=== PATIENT | male | born 1985 | race Caucasian/White ===

== ENCOUNTER 2020-08-10 17:59 | Inpatient (IN) | payer OTHER ==
[~2020-08-10] VITALS: Ht 182.9 cm; Wt 67.6 kg
[2020-08-10 18:34] LABS: Source, Urine Clean Catch
[2020-08-10 18:35] LABS: Appearance, Urine Clear (Clear); Bilirubin, Urine Neg (Neg); Blood, Urine 4+ (Neg); Color, Urine Yellow (P-Yellow); Glucose Qualitative, Urine 4+ (Neg); Ketones, Urine 4+ (Neg); Leukocyte Esterase, Urine Neg (Neg); Nitrite, Urine Neg (Neg); Protein, Urine 3+ (Neg); Specific Gravity, Urine 1.025 (1.003-1.022); Urobilinogen, Urine NORM (Normal)
[2020-08-10 18:35] LABS: BASOPHILS ABSOLUTE AUTO 0.14 K/mm3 (0.00-0.23); BASOPHILS PERCENT AUTO 1 % (0-2); EOSINOPHILS ABSOLUTE AUTO 0.01 K/mm3 (0.00-0.68); EOSINOPHILS PERCENT AUTO 0 % (0-6); Hematocrit 53.2 % (37.0-53.0); IMMATURE GRAN PERCENT AUTO 2 % (0-1); LYMPHOCYTES ABSOLUTE AUTO 0.83 K/mm3 (0.84-5.20); LYMPHOCYTES PERCENT AUTO 3 % (21-46); MONOCYTES ABSOLUTE AUTO 3.42 K/mm3 (0.16-1.47); MONOCYTES PERCENT AUTO 12 % (4-13); Mean Corpuscular HGB 33.1 pg (26.0-34.0); Mean Corpuscular Volume 104 fL (80-100); Mean Platelet Volume 9.8 fL (9.1-12.4); NEUTROPHILS ABSOLUTE AUTO 23.28 K/mm3 (1.96-9.15); NEUTROPHILS PERCENT AUTO 83 % (41-73); Platelet Count 371 K/mm3 (150-400); RDW Coefficient Variation 13.1 % (11.7-14.2); RDW Standard Deviation 50.4 fL (35.1-46.3); Red Blood Cell Count 5.14 M/mm3 (4.30-5.90); White Blood Cell Count 28.18 K/mm3 (4.00-11.30)
[2020-08-10 18:42] LABS: Amorphous Light (0-Heavy); Bacteria Mod /hpf; Mucus Light (0-Heavy); Red Blood Cells, Urine 0-2 /hpf (0-2); Squamous Epithelial Cells Not Seen /hpf (Few)
[2020-08-10 18:43] LABS: pH Blood Venous <6.80 (7.34-7.37)
[2020-08-10 18:44] LABS: Bicarbonate Venous 6.1 mmol/L (24.0-30.0); PCO2 Venous 27.5 mmHg (38-42); PO2 Venous 46.7 mmHg (38-42)
[2020-08-10 18:45] LABS: Base Excess Venous -30.8 mmol/L
[2020-08-10 18:54] LABS: Alanine Aminotransfer (ALT/SGP 25 U/L (12-78); Albumin, Blood 4.4 g/dL (3.4-5.0); Albumin/Globulin Ratio 1.2 (0.8-1.8); Alk Phos 112 U/L (50-136); Anion Gap 30 mmol/L (6-16); Aspartate Aminotrans (AST/SGOT 21 U/L (12-37); Bilirubin, Total 0.6 mg/dL (0.1-1.0); Blood Urea Nitrogen 30 mg/dL (8-24); CO2, Blood 2 mmol/L (21-32); Calcium, Blood 7.8 mg/dL (8.5-10.1); Chloride, Blood 90 mmol/L (98-108); Globulin, Blood 3.8 g/dL (2.2-4.0); Glomerular Filtration Rate >60 (60-); Glucose, Blood 628 mg/dL (70-99); Potassium, Blood 5.2 mmol/L (3.5-5.5); Sodium, Blood 122 mmol/L (136-145); Total Protein, Blood 8.2 g/dL (6.4-8.2)
--- NOTE | 2020-08-10 22:15 | NUR ---
Transfer to ICU at 2041 Pt to ICU 2 accompanied by ED nurse. Able to follow directions, A/O to location, date, and able to self transfer to ICU bed by sliding from ED bed. Pt has insulin GTT at 6 units/hr at time of arrive infusing via right AC IV, see flow sheet. Pt on 2 L via NC upon arrival, oxygen removed and pts SPO2 remained > 95%. Left AC IV infusing 150 meq sodium bicarb in D5 at rate of 150 mls/hr. Pt denies pain and nausea at this time. HR 140-150's upon arrival, Sinus tach, see vital sign flow sheet. BP stable. Call light within reach. Spoke to patients father, Shiv. Pt gave permission to speak to his father. Shiv states, "What is his alcohol level? Check his alcohol level." Shiv states pt has a hx of ETOH abuse. Per pt his last drink was 4 months ago. Shiv states pt has been having N/V for the "past few days" and had an episode of incontinence before father called 911.
[2020-08-10 22:45] LABS: Anion Gap 24 mmol/L (6-16); Blood Urea Nitrogen 27 mg/dL (8-24); Bun/Creatinine Ratio 33.4 (12.0-20.0); CO2, Blood 6 mmol/L (21-32); Calcium, Blood 7.5 mg/dL (8.5-10.1); Chloride, Blood 101 mmol/L (98-108); Creatinine, Blood 0.81 mg/dL (0.60-1.20); Glomerular Filtration Rate >60 (60-); Glucose, Blood 362 mg/dL (70-99); Potassium, Blood 4.6 mmol/L (3.5-5.5); Sodium, Blood 131 mmol/L (136-145)
--- NOTE | 2020-08-10 23:00 | NUR ---
Spoke to Dr. Cano via phone Pt has change in mental status. Pt attempting to get out of bed to get glass of water after being reoriented to not leaving the bed due to wake gait. Unable to state year or location. Slow to response. When asking what year he was born pt states "[birth year]." Bed alarm turned on and Dr. Cano called. Recieved orders for stat head CT. Will monitor pt closely.
[2020-08-10 23:44] LABS: Ethanol (Alcohol), Blood, Med <3 mg/dL
--- NOTE | 2020-08-11 | NUR ---
Update- Dr. Cano @ bedside Provider bedside. Pts mental status appears to have improved, A/O to year but states month being Sep. Able to state being at hospital and no longer slow to respond. Head CT cancelled. Recieved new orders, see emar. Pt remains in sinus tach, BP stable, and on RA.
[2020-08-11 00:04] LABS: U Amphetamine Screen Not Detected; U Barbituate Screen Not Detected; U Benzodiazapine Screen Not Detected; U Buprenorphine Screen Not Detected; U Cannabinoids Screen DETECTED; U Cocaine Screen Not Detected; U Methadone Screen Not Detected; U Methamphetamine Screen Not Detected; U Opiates Screen Not Detected; U Oxycodone Screen Not Detected; U Phencyclidine Screen Not Detected; U Propoxyphene Screen Not Detected
--- NOTE | 2020-08-11 02:03 | NUR ---
Spoke to Dr. Cano Spoke to provider in regards to keeping pt on sodium bicarb with D5w instead of switching to D5w-1/2 NS. CO2 currently 6. Glucose 218, insulin GTT 5 u/hr. Call light within reach. Pt currently sleeping.
[2020-08-11 03:19] LABS: BASOPHILS ABSOLUTE AUTO 0.05 K/mm3 (0.00-0.23); BASOPHILS PERCENT AUTO 0 % (0-2); EOSINOPHILS PERCENT AUTO 0 % (0-6); Hematocrit 42.5 % (37.0-53.0); Hemoglobin 14.9 g/dL (13.5-17.5); IMMATURE GRAN ABSOLUTE AUTO 0.18 K/mm3 (0.00-0.10); IMMATURE GRAN PERCENT AUTO 1 % (0-1); LYMPHOCYTES ABSOLUTE AUTO 1.42 K/mm3 (0.84-5.20); LYMPHOCYTES PERCENT AUTO 8 % (21-46); MONOCYTES ABSOLUTE AUTO 1.34 K/mm3 (0.16-1.47); MONOCYTES PERCENT AUTO 7 % (4-13); Mean Corpuscular HGB 32.6 pg (26.0-34.0); Mean Corpuscular HGB Conc 35.1 g/dL (31.5-36.5); Mean Corpuscular Volume 93 fL (80-100); Mean Platelet Volume 9.3 fL (9.1-12.4); NEUTROPHILS ABSOLUTE AUTO 15.53 K/mm3 (1.96-9.15); NEUTROPHILS PERCENT AUTO 84 % (41-73); Platelet Count 229 K/mm3 (150-400); RDW Coefficient Variation 12.7 % (11.7-14.2); RDW Standard Deviation 43.9 fL (35.1-46.3); Red Blood Cell Count 4.57 M/mm3 (4.30-5.90); White Blood Cell Count 18.52 K/mm3 (4.00-11.30)
[2020-08-11 03:36] LABS: Alanine Aminotransfer (ALT/SGP 16 U/L (12-78); Albumin, Blood 3.4 g/dL (3.4-5.0); Albumin/Globulin Ratio 1.1 (0.8-1.8); Alk Phos 69 U/L (50-136); Anion Gap 16 mmol/L (6-16); Aspartate Aminotrans (AST/SGOT 13 U/L (12-37); Bilirubin, Total 0.6 mg/dL (0.1-1.0); Blood Urea Nitrogen 25 mg/dL (8-24); Bun/Creatinine Ratio 33.9 (12.0-20.0); CO2, Blood 14 mmol/L (21-32); Calcium, Blood 7.7 mg/dL (8.5-10.1); Chloride, Blood 105 mmol/L (98-108); Creatinine, Blood 0.74 mg/dL (0.60-1.20); Globulin, Blood 3.2 g/dL (2.2-4.0); Glomerular Filtration Rate >60 (60-); Glucose, Blood 199 mg/dL (70-99); Potassium, Blood 3.7 mmol/L (3.5-5.5); Sodium, Blood 135 mmol/L (136-145); Total Protein, Blood 6.6 g/dL (6.4-8.2)
--- NOTE | 2020-08-11 04:07 | NUR ---
Update- fluids changed to D5W-1/[address] Cano in regards to fluids being switched to D5W-1/2NS and Sodium Bicarb stopped. CO2 of 14. Insulin GTT 4 u/hr, see flow sheet.
--- NOTE | 2020-08-11 06:31 | NUR ---
Shift Summary Pt remains in insulin GTT 3 u/hr. A/O at time to location/event and able to follow commands/turn self in bed. Pt remains on RA, SPO2 > 95%. NSR. HR 86 now. Pt had temporal temp of 99.6. Able to use urinal with assitance. Denies nausea and pain. Will report to oncoming shift.
--- NOTE | 2020-08-11 07:30 | NUR ---
PT RECEIVED FROM [facility]. PT ORIENTED AND ANSWERING APPROPRIATELY, DENIES PAIN OR NAUSEA. IV'S INFUSING IN BOTH A/C'S. D5 1/2NS @ 125ML/HR AND INSULIN @ 3U/HR. GLUCOSE HAS BEEN RUNNING UNDER 200, PT WITH GOOD LUNG SOUNDS, ACTIVE BELLY, USING URINAL. JUST TRYING TO GET SOME REST.
[2020-08-11 08:55] LABS: Anion Gap 13 mmol/L (6-16); Blood Urea Nitrogen 21 mg/dL (8-24); CO2, Blood 17 mmol/L (21-32); Calcium, Blood 8.2 mg/dL (8.5-10.1); Chloride, Blood 106 mmol/L (98-108); Glomerular Filtration Rate >60 (60-); Glucose, Blood 185 mg/dL (70-99); Potassium, Blood 3.4 mmol/L (3.5-5.5); Sodium, Blood 136 mmol/L (136-145)
[2020-08-11 09:16] LABS: PCO2 Venous 33.5 mmHg (38-42); pH Blood Venous 7.31 (7.34-7.37)
[2020-08-11 09:17] LABS: Base Excess Venous -9.3 mmol/L; Bicarbonate Venous 17.6 mmol/L (24.0-30.0)
--- NOTE | 2020-08-11 09:50 | NUR ---
CALLED IN REGARDS TO BLOOD PRESSURES RUNNING 80'S/40'S FOR THE LAST COUPLE OF HOURS, PT HAS BEEN RESTING BETWEEN CBG'S, APPROPRIATE WHEN AWAKENED. ORDER RECEIVED FOR LR 500ML BOLUS. CBG 219. INSULIN REMAINS AT 3U/HR.
[2020-08-11 14:02] LABS: Anion Gap 9 mmol/L (6-16); Blood Urea Nitrogen 17 mg/dL (8-24); Bun/Creatinine Ratio 28.8 (12.0-20.0); CO2, Blood 19 mmol/L (21-32); Calcium, Blood 8.6 mg/dL (8.5-10.1); Chloride, Blood 107 mmol/L (98-108); Creatinine, Blood 0.59 mg/dL (0.60-1.20); Glomerular Filtration Rate >60 (60-); Glucose, Blood 173 mg/dL (70-99); Potassium, Blood 3.3 mmol/L (3.5-5.5); Sodium, Blood 135 mmol/L (136-145)
--- NOTE | 2020-08-11 17:46 | NUR ---
LORI CONTINUES TO TRY TO SLEEP BETWEEN CBG'S. HE IS ALERT AND ORIENTED, DENIES ANY COMPLAINTS. INSULIN CONTINUES @2U/HR, D5 1/2NS @ 125ML/HR. HE HAS SIPPED ON SOME WATER, BUT NOTHING ELSE BY MOUTH. HE CONTINUES TO USE THE URINAL NEEDED. TURNS AND REPOSITIONS SELF WITHOUT ANY HELP. LABS TO BE DRAWN AGAIN AT 1800, FOR NEXT STEPS.
[2020-08-11 18:32] LABS: Anion Gap 9 mmol/L (6-16); Blood Urea Nitrogen 14 mg/dL (8-24); Bun/Creatinine Ratio 24.6 (12.0-20.0); CO2, Blood 22 mmol/L (21-32); Calcium, Blood 8.7 mg/dL (8.5-10.1); Chloride, Blood 106 mmol/L (98-108); Creatinine, Blood 0.57 mg/dL (0.60-1.20); Glomerular Filtration Rate >60 (60-); Glucose, Blood 184 mg/dL (70-99); Potassium, Blood 3.5 mmol/L (3.5-5.5); Sodium, Blood 137 mmol/L (136-145)
--- NOTE | 2020-08-11 19:25 | NUR ---
CARE ASSUMED REPORT RECEIVED FROM CINDY NOVAK. PT AWKE, ON INSULIN GTT, AWAITING LANTUS TO ARRIVE FROM PHARM. RA, VITALS STABLE.
--- NOTE | 2020-08-11 22:00 | NUR ---
REPORT TO [facility].
--- NOTE | 2020-08-12 04:35 | NUR ---
0430 DR JAGN CALLED REGARDING INSULIN SLIDING SCALE. SLIDING SCALE DOES NOT HAVE Q4 HR DOSING. PROVIDER ORDERED TO USE AC/ Q6HR DOSING FOR 0400 DOSING. PT CBG 254 AND WAS GIVEN 6 UNITS OF HUMALOG.
--- NOTE | 2020-08-12 05:08 | NUR ---
SUMMARY PT TRANSFERRED FROM ICU W/ OUT ISSUE. PT HAS BEEN SLEEPING MOST OF SHIFT. PT HAS BEEN DRINKING FLUIDS AND HAVING JELLO. PT CURRENTLY SLEEPING CALL LIGHT IN REACH.
[2020-08-12 05:46] LABS: Anion Gap 19 mmol/L (6-16); Blood Urea Nitrogen 11 mg/dL (8-24); Bun/Creatinine Ratio 19.4 (12.0-20.0); CO2, Blood 14 mmol/L (21-32); Calcium, Blood 8.4 mg/dL (8.5-10.1); Chloride, Blood 103 mmol/L (98-108); Creatinine, Blood 0.57 mg/dL (0.60-1.20); Glomerular Filtration Rate >60 (60-); Glucose, Blood 267 mg/dL (70-99); Potassium, Blood 3.3 mmol/L (3.5-5.5); Sodium, Blood 136 mmol/L (136-145)
[2020-08-12 13:16] LABS: Anion Gap 11 mmol/L (6-16); Blood Urea Nitrogen 11 mg/dL (8-24); CO2, Blood 23 mmol/L (21-32); Calcium, Blood 8.4 mg/dL (8.5-10.1); Chloride, Blood 105 mmol/L (98-108); Creatinine, Blood 0.55 mg/dL (0.60-1.20); Glomerular Filtration Rate >60 (60-); Glucose, Blood 237 mg/dL (70-99); Potassium, Blood 3.5 mmol/L (3.5-5.5); Sodium, Blood 139 mmol/L (136-145)
--- NOTE | 2020-08-12 22:36 | NUR ---
2030 DR DAWSON CALLED AND CONFIRMED TO USE HS SCALE FOR 0000 AND 0400 HRS INSULIN. PT REMAINS ON Q 4 CBG, INSULIN.
[2020-08-13] MEDS ORDERED: BASAGLAR K100 UNIT/1 SC (00:41)
[2020-08-13] MEDS ORDERED: NOVOLOG FL100 UNIT/2 SC (01:09)
--- NOTE | 2020-08-13 04:54 | NUR ---
SUMMARY NO NEW ISSUES NOTED. PT HAS BEEN RESTING T/O SHIFT. PT CURRENTLY SLEEPING AND IN NO DISTRESS. CALL LIGHT IN REACH.
[2020-08-13] MEDS ORDERED: INSULANPEN SC (11:35)
[2020-08-13] MEDS ORDERED: FAMO20 PO (11:35)
[2020-08-13] MEDS ORDERED: ONDA4ODT MM (11:36)
--- NOTE | 2020-08-13 13:32 | NUR ---
PT DISCHARGED FROM THE UNIT. IVS REMOVED. DISCHARGE INSTRUCTIONS REVIEWED. MEDICATIONS FAXED TO [facility]. PT LEFT HE UNIT AT 1332 VIA WHEELCHAIR. PARENTS OF PT WILL DRIVE HIM HOME
== END 2020-08-13 13:44 | disposition home or self-care (01) | DRG 639 ==
LOC: ER 17:59 → ICUW 19:39 → ICUE 19:39 → ER 19:39 → ICUE 20:41 → ICUW 20:41 → ICUE 21:06 → MEDS 08-11 22:11 → ENPENDDIS 08-13 11:03 → MEDS 08-13 13:44
PROVIDERS: Emergency Medicine; Family Medicine; Internal Medicine; ADMIT Internal Medicine
PROC: 3E0234Z Introduction of Serum, Toxoid and Vaccine into Muscle, Percutaneous Approach (ICD-10-PCS; principal; 2020-08-10)
DX: E10.10 Type 1 diabetes mellitus with ketoacidosis without coma (principal); E87.6 Hypokalemia; E86.0 Dehydration; Z23 Encounter for immunization
CPT/HCPCS: 36415; 71045; 80048; 80053; 81001; 82010; 82803; 82947; 85025; 87086; 96361; 96365; 96372; 96375; 99285-25; A9270; G0008; G0378; G0480; J1650; J1815; J2405; J3480; J7030; J7040; J7042; J7070; J7120; Q2038

== ENCOUNTER 2024-02-13 15:29 | Emergency (ER) | payer OTHER ==
[~2024-02-13] VITALS: Ht 180.3 cm; Wt 81.7 kg
[~2024-02-13 15:29] MED LIST: BASAGLAR K100 UNIT/1 SC; FAMO20 PO; INSULANPEN SC; NOVOLOG FL100 UNIT/2 SC; ONDA4ODT MM
[2024-02-13 15:54] VITALS: BP 127/81
== END 2024-02-13 17:01 | disposition home or self-care (01) ==
LOC: ER 15:29
DX: S46.911A Strain of unspecified muscle, fascia and tendon at shoulder and upper arm level, right arm, initial encounter (principal); X50.9XXA Other and unspecified overexertion or strenuous movements or postures, initial encounter; E11.9 Type 2 diabetes mellitus without complications; Z79.4 Long term (current) use of insulin; Z79.899 Other long term (current) drug therapy; S51.011A Laceration without foreign body of right elbow, initial encounter; X58.XXXA Exposure to other specified factors, initial encounter
CPT/HCPCS: 73080; 99283; 99283-25; A9270

== ENCOUNTER 2024-03-26 20:24 | Emergency (ER) | payer OTHER ==
[~2024-03-26] VITALS: Ht 180.3 cm; Wt 68.0 kg
[2024-03-26] MEDS ORDERED: Dextrose 50% 50 ML Vial ONE (20:31)
[2024-03-26] MEDS ORDERED: Dextrose 50% 50 ML Syringe IV ONE (20:45)
[2024-03-26 20:53] LABS: BASOPHILS ABSOLUTE AUTO 0.06 K/mm3 (0.00-0.23); BASOPHILS PERCENT AUTO 0 % (0-2); EOSINOPHILS ABSOLUTE AUTO 0.01 K/mm3 (0.00-0.68); EOSINOPHILS PERCENT AUTO 0 % (0-6); Hematocrit 43.3 % (37.0-53.0); Hemoglobin 15.3 g/dL (13.5-17.5); IMMATURE GRAN ABSOLUTE AUTO 0.08 K/mm3 (0.00-0.10); IMMATURE GRAN PERCENT AUTO 1 % (0-1); LYMPHOCYTES ABSOLUTE AUTO 2.17 K/mm3 (0.84-5.20); LYMPHOCYTES PERCENT AUTO 14 % (21-46); MONOCYTES ABSOLUTE AUTO 0.87 K/mm3 (0.16-1.47); MONOCYTES PERCENT AUTO 6 % (4-13); Mean Corpuscular HGB 32.3 pg (26.0-34.0); Mean Corpuscular HGB Conc 35.3 g/dL (31.5-36.5); Mean Corpuscular Volume 91 fL (80-100); Mean Platelet Volume 8.9 fL (9.1-12.4); NEUTROPHILS ABSOLUTE AUTO 12.22 K/mm3 (1.96-9.15); NEUTROPHILS PERCENT AUTO 79 % (41-73); Platelet Count 316 K/mm3 (150-400); RDW Coefficient Variation 15.7 % (11.7-14.2); RDW Standard Deviation 52.7 fL (35.1-46.3); Red Blood Cell Count 4.74 M/mm3 (4.30-5.90); White Blood Cell Count 15.41 K/mm3 (4.00-11.30)
[2024-03-26 21:11] LABS: Magnesium, Blood 1.6 mg/dL (1.6-2.4)
[2024-03-26 21:15] LABS: Albumin, Blood 4.3 g/dL (3.4-5.0); Albumin/Globulin Ratio 1.5 (0.8-1.8); Bilirubin, Total 0.4 mg/dL (0.1-1.0); Bun/Creatinine Ratio 15.4 (12.0-20.0); Calcium, Blood 9.4 mg/dL (8.5-10.1); Creatinine, Blood 0.58 mg/dL (0.60-1.20); Globulin, Blood 2.8 g/dL (2.2-4.0); Potassium, Blood 3.5 mmol/L (3.5-5.5); Total Protein, Blood 7.1 g/dL (6.4-8.2)
[2024-03-26 21:17] LABS: Source, Urine Clean Catch
[2024-03-26 21:20] LABS: Appearance, Urine Clear (Clear); Bilirubin, Urine Neg (Neg); Blood, Urine 1+ (Neg); Color, Urine Yellow (P-Yellow); Glucose Qualitative, Urine 4+ (Neg); Ketones, Urine Neg (Neg); Leukocyte Esterase, Urine Neg (Neg); Nitrite, Urine Neg (Neg); Protein, Urine 1+ (Neg); Urobilinogen, Urine NORM (Normal)
[2024-03-26 21:45] LABS: Bacteria Few /hpf; Red Blood Cells, Urine 0-2 /hpf (0-2); Squamous Epithelial Cells Few /hpf (Few); White Blood Cells, Urine 0-2 /hpf (0-5)
[2024-03-26 21:52] LABS: Influenza A, PCR NEGATIVE (NEGATIVE); Influenza B, PCR NEGATIVE (NEGATIVE); Resp Syncytial Virus, PCR NEGATIVE (NEGATIVE); SARS-Cov-2 (COVID-19) PCR, MMC NEGATIVE (NEGATIVE)
[2024-03-27 00:45] VITALS: BP 143/81
== END 2024-03-27 01:04 | disposition home or self-care (01) ==
LOC: ER 20:24
PROVIDERS: Student in an Organized Health Care Education/Training Program
DX: E10.649 Type 1 diabetes mellitus with hypoglycemia without coma (principal); T38.3X5A Adverse effect of insulin and oral hypoglycemic [antidiabetic] drugs, initial encounter; Z87.891 Personal history of nicotine dependence; Z79.4 Long term (current) use of insulin; Z79.899 Other long term (current) drug therapy
CPT/HCPCS: 0241U; 80053; 81001; 82947; 83690; 83735; 84484; 85025; 93005; 93010; 96374; 99285-25; J7799